=== PATIENT | female | born 1985 | race Caucasian/White ===

== ENCOUNTER 2022-03-04 17:31 | Emergency (ER) | payer SELFPAY | END 2022-03-04 20:30 | disposition left against medical advice (07) | LOC: ER 17:32 | DX: Z04.3 Encounter for examination and observation following other accident (principal); Z53.21 Procedure and treatment not carried out due to patient leaving prior to being seen by health care provider; W19.XXXA Unspecified fall, initial encounter; Y93.89 Activity, other specified; Y92.89 Other specified places as the place of occurrence of the external cause; Y99.8 Other external cause status ==